=== PATIENT | female | born 1970 | race Caucasian/White ===

== ENCOUNTER 2018-03-03 20:49 | Observation (INO) | payer SELFPAY ==
[~2018-03-03] VITALS: Ht 175.3 cm; Wt 136.0 kg
[~2018-03-03 20:49] MED LIST: AMOXIL500 MG OR; BENTYL20 MG OR; FAMVIR500 MG OR; FLEXERIL OR; KEFLEX500 M1 PO; LORTAB 10 OR; LORTAB 10-325 M1 TAB PO; LORTAB 5 OR; MEDDOSEPAK PO; NAPROSYN500 MG OR; NO HOME MEDS; PERCOCET1 TA5 OR; PROVENTIL IN; PROVENTIL INH17 GM IN; VICOPROFEN OR
[2018-03-03 21:31] LABS: HEMATOCRIT 42.2 % (37.0-47.0); HEMOGLOBIN 13.6 g/dl (12.0-16.0); IMMATURE GRANULOCYTES 0.3 % (0.0-1.0); MEAN CELL VOLUME 89.4 fL CALC (80.0-100.0); MEAN CORPUSCULAR HGB 28.8 pG CALC (26.0-32.0); MEAN CORPUSCULAR HGB CONC 32.2 g/L CALC (32.0-36.0); NEUT# 7.25 thou/uL (2.00-7.15); RED BLOOD COUNT 4.72 mill/uL (4.20-5.60); RED CELL DISTRI WIDTH 13.5 % (11.5-15.5)
[2018-03-03 21:32] LABS: URINE BILIRUBIN - DIPSTICK NEGATIVE (NEGATIVE); URINE BLOOD DIPSTICK LARGE (NEGATIVE); URINE GLUCOSE - DIPSTICK NEGATIVE (NEGATIVE); URINE KETONE NEGATIVE (NEGATIVE); URINE LEUK ESTERASE TRACE (NEGATIVE); URINE PROTEIN - DIPSTICK 30 mg/dL (NEG-TRACE); URINE SPECIFIC GRAVITY 1.025
[2018-03-03 21:33] LABS: URINE CLARITY SL CLOUDY; URINE COLOR AMBER; URINE NITRITE - DIPSTICK POSITIVE (Negative)
[2018-03-03 21:34] LABS: URINE RBC 25-50 RBC/hpf (0-5); URINE SQUAMOUS EPITHELIAL CELL FEW EPI/hpf (0-FEW)
[2018-03-03 21:52] LABS: ALBUMIN 4.5 g/dL (3.2-5.0); ALKALINE PHOSPHATASE 171 u/l (38-126); ANION GAP 18 (6-22 (CALC)); BILIRUBIN, TOTAL 0.4 mg/dL (0.0-1.4); BUN 11 mg/dL (7-17); BUN/CREATININE RATIO 13 (12-20 (CALC)); CARBON DIOXIDE 28 mmol/l (22-30); CHLORIDE 102 mmol/l (95-108); CREATININE 0.8 mg/dL (0.5-1.0); GFR > 60 ML/MIN (>=60 (CALC)); GFR FOR AFR.AMER. > 60 ML/MIN (>=60 (CALC)); POTASSIUM 3.7 mmol/l (3.5-5.1); SGOT/AST 37 u/l (14-36); SGPT/ALT 31 u/l (9-52); SODIUM 144 mmol/l (137-146); TOTAL PROTEIN 8.4 g/dL (6.3-8.2)
[2018-03-03 21:53] LABS: ACT PARTIAL THROMBO TIME 30.2 SECONDS (20.0-32.5); INTERNATIONAL NORMALIZED RATIO 1.1 RATIO (0.7-1.3)
[2018-03-03 22:04] LABS: MYOGLOBIN 69 ng/mL (0 - 62)
[2018-03-04] VITALS (7 sets, daily range): BP systolic 148–207; BP diastolic 75–107
[2018-03-04 08:57] LABS: CHOLESTEROL HDL RATIO 5.9 (<4.4 (CALC)); MAGNESIUM 1.6 mg/dL (1.6-2.3)
[2018-03-05] VITALS (8 sets, daily range): BP systolic 157–196; BP diastolic 79–110
[2018-03-05 05:18] LABS: HEMATOCRIT 42.5 % (37.0-47.0); HEMOGLOBIN 13.8 g/dl (12.0-16.0); IMMATURE GRANULOCYTES 0.9 % (0.0-1.0); MEAN CELL VOLUME 89.9 fL CALC (80.0-100.0); MEAN CORPUSCULAR HGB 29.2 pG CALC (26.0-32.0); MEAN CORPUSCULAR HGB CONC 32.5 g/L CALC (32.0-36.0); NEUT# 23.15 thou/uL (2.00-7.15); RED BLOOD COUNT 4.73 mill/uL (4.20-5.60); RED CELL DISTRI WIDTH 13.6 % (11.5-15.5)
[2018-03-05 05:29] LABS: ANION GAP 21 (6-22 (CALC)); BUN 16 mg/dL (7-17); BUN/CREATININE RATIO 23 (12-20 (CALC)); CARBON DIOXIDE 22 mmol/l (22-30); CHLORIDE 102 mmol/l (95-108); CREATININE 0.7 mg/dL (0.5-1.0); GFR > 60 ML/MIN (>=60 (CALC)); GFR FOR AFR.AMER. > 60 ML/MIN (>=60 (CALC)); MAGNESIUM 1.7 mg/dL (1.6-2.3); SODIUM 141 mmol/l (137-146)
[2018-03-05 14:41] LABS: BARBITURATES NEGATIVE (NEGATIVE); COCAINE NEGATIVE (NEGATIVE); METHADONE NEGATIVE (NEGATIVE); OXCYCODONE NEGATIVE (NEGATIVE); TETRAHYDROCANNABIONOL NEGATIVE (NEGATIVE); TRICYLIC ANTIDEPRESSANTS NEGATIVE (NEGATIVE)
[2018-03-06 00:30] VITALS: BP 180/99
[2018-03-06 04:22] VITALS: BP 168/108
[2018-03-06 05:04] LABS: HEMOGLOBIN 13.9 g/dl (12.0-16.0); MEAN CELL VOLUME 89.8 fL CALC (80.0-100.0); MEAN CORPUSCULAR HGB CONC 32.3 g/L CALC (32.0-36.0); RED BLOOD COUNT 4.79 mill/uL (4.20-5.60); RED CELL DISTRI WIDTH 14.1 % (11.5-15.5)
[2018-03-06 05:22] LABS: ANION GAP 21 (6-22 (CALC)); BUN 22 mg/dL (7-17); BUN/CREATININE RATIO 26 (12-20 (CALC)); CARBON DIOXIDE 27 mmol/l (22-30); CHLORIDE 100 mmol/l (95-108); CREATININE 0.8 mg/dL (0.5-1.0); GFR > 60 ML/MIN (>=60 (CALC)); GFR FOR AFR.AMER. > 60 ML/MIN (>=60 (CALC)); POTASSIUM 4.6 mmol/l (3.5-5.1); SODIUM 144 mmol/l (137-146)
[2018-03-06 08:59] VITALS: BP 175/101
[2018-03-06 11:28] VITALS: BP 151/96
[2018-03-06] MEDS ORDERED: ATORVASTATIN CA10 MG PO (12:35)
[2018-03-06] MEDS ORDERED: ALPRAZOLAM0.25 MG PO (12:35)
[2018-03-06] MEDS ORDERED: PREDNISONE10 MG PO (12:35)
[2018-03-06] MEDS ORDERED: IPRATROPIU0.5 MG/3 M IN (12:35)
[2018-03-06] MEDS ORDERED: NORVASC10 M1 PO (12:35)
[2018-03-06] MEDS ORDERED: PEPCID20 MG PO (12:35)
[2018-03-06] MEDS ORDERED: LISINOPRIL20 M1 PO (12:35)
[2018-03-06] MEDS ORDERED: catapres PO (12:35)
[2018-03-06] MEDS ORDERED: KEFLEX500 M1 PO (12:35)
[2018-03-06] MEDS ORDERED: HYDROCHLOROT12.5 MG PO (12:35)
[2018-03-06] MEDS ORDERED: GNP NICOTI21 MG/24 H TOP (16:12)
== END 2018-03-06 16:33 | disposition home or self-care (01) | DRG 191 ==
LOC: ED 20:49 → ED-I 23:05 → ED 23:58 → MS2 23:59 → UNDODEPER 03-04 06:23 → MS2 03-06 16:33
PROVIDERS: Emergency Medicine; Nurse Practitioner Family; ADMIT Internal Medicine; ATTEND Internal Medicine
DX: J44.1 Chronic obstructive pulmonary disease with (acute) exacerbation (principal); N39.0 Urinary tract infection, site not specified; J45.901 Unspecified asthma with (acute) exacerbation; Z68.41 Body mass index [BMI] 40.0-44.9, adult; F17.210 Nicotine dependence, cigarettes, uncomplicated; I10 Essential (primary) hypertension; I16.0 Hypertensive urgency; B96.20 Unspecified Escherichia coli [E. coli] as the cause of diseases classified elsewhere; M94.0 Chondrocostal junction syndrome [Tietze]; F41.1 Generalized anxiety disorder; R12 Heartburn
CPT/HCPCS: G0378

== ENCOUNTER 2018-04-09 17:39 | Emergency (ER) | payer SELFPAY ==
[~2018-04-09] VITALS: Ht 175.3 cm; Wt 121.0 kg
[~2018-04-09 17:39] MED LIST changes: +ALPRAZOLAM0.25 MG PO; +ATORVASTATIN CA10 MG PO; +GNP NICOTI21 MG/24 H TOP; +HYDROCHLOROT12.5 MG PO; +IPRATROPIU0.5 MG/3 M IN; +LISINOPRIL20 M1 PO; +NORVASC10 M1 PO; +PEPCID20 MG PO; +PREDNISONE10 MG PO; +catapres PO
[2018-04-09] MEDS ORDERED: FLEXERIL5 M1 PO (19:48)
[2018-04-09] MEDS ORDERED: VOLTAREN - GENE75 MG PO (19:48)
[2018-04-09 19:51] VITALS: BP 187/89
== END 2018-04-09 20:00 | disposition home or self-care (01) | DRG 538 ==
LOC: ED 17:39
DX: S76.011A Strain of muscle, fascia and tendon of right hip, initial encounter (principal); W18.30XA Fall on same level, unspecified, initial encounter; Y92.009 Unspecified place in unspecified non-institutional (private) residence as the place of occurrence of the external cause

== ENCOUNTER 2020-01-27 | Emergency (ER) | payer SELFPAY ==
[~2020-01-27] MED LIST changes: +FLEXERIL5 M1 PO; +VOLTAREN - GENE75 MG PO
[2020-01-27 11:47] LABS: HEMATOCRIT 45.2 % (37.0-47.0); IMMATURE GRANULOCYTES 0.4 % (0.0-5.0); MEAN CELL VOLUME 92.4 fL CALC (80.0-100.0); MEAN CORPUSCULAR HGB 30.7 pG CALC (26.0-32.0); MEAN CORPUSCULAR HGB CONC 33.2 g/dL CAL (32.0-36.0); NEUT# 10.63 thou/uL (2.00-7.15); RED BLOOD COUNT 4.89 mill/uL (4.20-5.60); RED CELL DISTRI WIDTH 12.6 % (11.5-15.5)
[2020-01-27] MEDS ORDERED: DOXYCYCL HYC100 MG PO (12:21)
[2020-01-27] MEDS ORDERED: PREDNISONE50 MG PO (12:21)
== END 2020-01-27 12:25 | disposition home or self-care (01) | DRG 192 ==
PROVIDERS: Family Medicine
DX: J44.1 Chronic obstructive pulmonary disease with (acute) exacerbation (principal)

== ENCOUNTER 2020-09-02 14:04 | Emergency (ER) | payer OTHER ==
[~2020-09-02] VITALS: Ht 175.3 cm; Wt 130.0 kg
[~2020-09-02 14:04] MED LIST changes: +DOXYCYCL HYC100 MG PO; +PREDNISONE50 MG PO
[2020-09-02 15:09] LABS: HEMATOCRIT 47.1 % (37.0-47.0); HEMOGLOBIN 14.4 g/dl (12.0-16.0); IMMATURE GRANULOCYTES 0.2 % (0.0-5.0); MEAN CELL VOLUME 88.9 fL CALC (80.0-100.0); MEAN CORPUSCULAR HGB 27.2 pG CALC (26.0-32.0); MEAN CORPUSCULAR HGB CONC 30.6 g/dL CAL (32.0-36.0); NEUT# 6.6 thou/uL (2.00-7.15); RED BLOOD COUNT 5.3 mill/uL (4.20-5.60); RED CELL DISTRI WIDTH 14.4 % (11.5-15.5)
[2020-09-02 15:18] LABS: ALBUMIN 4.4 g/dL (3.2-5.0); ALKALINE PHOSPHATASE 163 u/l (38-126); ANION GAP 11 (6-22 (CALC)); BILIRUBIN, TOTAL 0.3 mg/dL (0.0-1.4); BUN 11 mg/dL (7-17); BUN/CREATININE RATIO 15 (12-20 (CALC)); CARBON DIOXIDE 30 mmol/l (22-30); CHLORIDE 103 mmol/l (95-108); CREATININE 0.7 mg/dL (0.5-1.0); ETHYL ALCOHOL 0 mg/dl (0-30); GFR > 60 ML/MIN (>=60 (CALC)); GFR FOR AFR.AMER. > 60 ML/MIN (>=60 (CALC)); POTASSIUM 4.1 mmol/l (3.5-5.1); SGOT/AST 31 u/l (14-36); SODIUM 141 mmol/l (137-146); TOTAL PROTEIN 8.3 g/dL (6.3-8.2)
[2020-09-02 15:19] LABS: ACT PARTIAL THROMBO TIME 25.4 SECONDS (20.0-32.5); INTERNATIONAL NORMALIZED RATIO 0.9 RATIO (0.7-1.3); PROTHROMBIN TIME 9.4 SECONDS (9.0-12.5)
[2020-09-02] MEDS ORDERED: ULTRAM50 MG PO (16:59)
[2020-09-02] MEDS ORDERED: FLEXERIL5 M1 PO (16:59)
[2020-09-02 17:07] LABS: URINE BILIRUBIN - DIPSTICK NEGATIVE (NEGATIVE); URINE BLOOD DIPSTICK TRACE-LYSED (NEGATIVE); URINE CLARITY CLEAR; URINE COLOR YELLOW; URINE GLUCOSE - DIPSTICK NEGATIVE (NEGATIVE); URINE KETONE NEGATIVE (NEGATIVE); URINE LEUK ESTERASE NEGATIVE (Negative); URINE NITRITE - DIPSTICK NEGATIVE (Negative); URINE PROTEIN - DIPSTICK NEGATIVE (NEG-TRACE); URINE UROBILINOGEN - DIPSTICK 0.2 E.U./dL (0.2)
[2020-09-02 17:18] VITALS: BP 195/84
[2020-09-02] MEDS ORDERED: TORADOL PO (17:24)
== END 2020-09-02 17:29 | disposition home or self-care (01) | DRG 605 ==
LOC: ED 14:04
DX: S20.211A Contusion of right front wall of thorax, initial encounter (principal); S16.1XXA Strain of muscle, fascia and tendon at neck level, initial encounter; S39.012A Strain of muscle, fascia and tendon of lower back, initial encounter; S80.811A Abrasion, right lower leg, initial encounter; M25.511 Pain in right shoulder; I10 Essential (primary) hypertension; J45.909 Unspecified asthma, uncomplicated; V49.50XA Passenger injured in collision with unspecified motor vehicles in traffic accident, initial encounter; S00.03XA Contusion of scalp, initial encounter
CPT/HCPCS: Q9967

== ENCOUNTER 2020-09-06 00:11 | Emergency (ER) | payer OTHER ==
[~2020-09-06] VITALS: Ht 175.3 cm; Wt 118.0 kg
[~2020-09-06 00:11] MED LIST changes: +TORADOL PO; +ULTRAM50 MG PO
[2020-09-06 01:13] LABS: HEMOGLOBIN 12.7 g/dl (12.0-16.0); IMMATURE GRANULOCYTES 0.5 % (0.0-5.0); MEAN CELL VOLUME 88.1 fL CALC (80.0-100.0); MEAN CORPUSCULAR HGB 27.5 pG CALC (26.0-32.0); MEAN CORPUSCULAR HGB CONC 31.2 g/dL CAL (32.0-36.0); NEUT# 6.5 thou/uL (2.00-7.15); RED BLOOD COUNT 4.62 mill/uL (4.20-5.60); RED CELL DISTRI WIDTH 14.3 % (11.5-15.5)
[2020-09-06 01:18] LABS: HEMATOCRIT 40.7 % (37.0-47.0)
[2020-09-06 01:37] LABS: ALKALINE PHOSPHATASE 138 u/l (38-126); ANION GAP 13 (6-22 (CALC)); BILIRUBIN, TOTAL 0.2 mg/dL (0.0-1.4); BUN 18 mg/dL (7-17); BUN/CREATININE RATIO 23 (12-20 (CALC)); CARBON DIOXIDE 28 mmol/l (22-30); CHLORIDE 103 mmol/l (95-108); CREATININE 0.8 mg/dL (0.5-1.0); GFR > 60 ML/MIN (>=60 (CALC)); GFR FOR AFR.AMER. > 60 ML/MIN (>=60 (CALC)); POTASSIUM 3.7 mmol/l (3.5-5.1); SGOT/AST 23 u/l (14-36); SODIUM 141 mmol/l (137-146); TOTAL PROTEIN 7.2 g/dL (6.3-8.2)
[2020-09-06] MEDS ORDERED: CLONIDINE0.1 MG PO ×2 (01:40→04:00)
[2020-09-06] MEDS ORDERED: PROVENTIL108 MCG/AC (01:42)
[2020-09-06 01:49] LABS: MYOGLOBIN 42 ng/mL (0 - 62)
[2020-09-06] MEDS ORDERED: LORTAB 1010 MG PO (02:47)
[2020-09-06] MEDS ORDERED: FLOXIN OTIC0.3 % AD (02:47)
[2020-09-06] MEDS ORDERED: AMOX/K CLAV875 M1 PO (02:47)
[2020-09-06 04:02] VITALS: BP 174/90
== END 2020-09-06 04:02 | disposition home or self-care (01) | DRG 153 ==
LOC: ED 00:11
PROVIDERS: Emergency Medicine
DX: H66.91 Otitis media, unspecified, right ear (principal); S43.401A Unspecified sprain of right shoulder joint, initial encounter; I10 Essential (primary) hypertension; J45.909 Unspecified asthma, uncomplicated; V89.2XXA Person injured in unspecified motor-vehicle accident, traffic, initial encounter

== ENCOUNTER 2023-12-08 21:39 | Emergency (ER) | payer OTHER ==
[~2023-12-08] VITALS: Ht 177.8 cm; Wt 117.9 kg
[~2023-12-08 21:39] MED LIST changes: +AMOX/K CLAV875 M1 PO; +CLONIDINE0.1 MG PO; +FLOXIN OTIC0.3 % AD; +LORTAB 1010 MG PO; +MOTRIN800 MG PO; +ORPHENADRINE100 MG PO; +PROVENTIL108 MCG/AC
[2023-12-08] MEDS ORDERED: PROAIR DIG108 MCG/AC (21:52)
[2023-12-09 00:30] VITALS: BP 132/80
== END 2023-12-09 00:30 | disposition home or self-care (01) | DRG 563 ==
LOC: ED 21:39
DX: S93.601A Unspecified sprain of right foot, initial encounter (principal); I10 Essential (primary) hypertension; J45.909 Unspecified asthma, uncomplicated; F17.210 Nicotine dependence, cigarettes, uncomplicated; X58.XXXA Exposure to other specified factors, initial encounter; Z87.81 Personal history of (healed) traumatic fracture